=== PATIENT | male | born 1955 | race Caucasian/White ===

== ENCOUNTER → 2016-12-06 | Outpatient (CLI) | payer BC ==
[~2016-12-06] MED LIST: ALT25 PO; ASPI-113 PO; B-COCAP2 PO; CRDCD240 PO; MAGN400T5 PO; OMEG10007 PO
[2016-12-06 16:51] LABS: URINE APPEARANCE CLEAR (CLEAR); URINE BILIRUBIN NEG (NEG); URINE COLOR YELLOW; URINE NITRITE NEG (NEG); URINE PH 5.5 (4.5-7.5); URINE SPECIFIC GRAVITY 1.009 (1.000-1.030); UROBILINOGEN NEG (NEG)
[2016-12-06 17:19] LABS: MANUAL MICROSCOPIC REQUIRED? NO; REVIEW REQ? NO
== END | disposition home or self-care (01) ==
LOC: C.LABBC 13:44
PROVIDERS: ATTEND Internal Medicine
DX: R30.0 Dysuria (principal)

== ENCOUNTER → 2017-02-09 | Outpatient (CLI) | payer BC ==
[2017-02-10 07:19] LABS: ESTIMATED AVERAGE GLUCOSE 108 mg/dl; HA1C FLAG Normal (Normal)
== END | disposition home or self-care (01) ==
LOC: C.LABBC 13:23
PROVIDERS: ATTEND Internal Medicine
DX: R73.9 Hyperglycemia, unspecified (principal)

== ENCOUNTER → 2018-01-24 | Outpatient (CLI) | payer BC | END | disposition home or self-care (01) | LOC: C.LAB 17:27 | PROVIDERS: ATTEND Urology | DX: N40.1 Benign prostatic hyperplasia with lower urinary tract symptoms (principal); N20.0 Calculus of kidney ==

== ENCOUNTER → 2018-02-22 | Outpatient (CLI) | payer BC ==
[2018-02-22 10:56] LABS: HEMOGLOBIN A1C 5.2 % (4.5-5.6)
[2018-02-22 13:21] LABS: ALBUMIN 3.7 gm/dl (3.4-5.0); ALKALINE PHOSPHATASE 69 U/L (45-117); ALT/SGPT 36 U/L (12-78); AST/SGOT 18 U/L (15-37); BLOOD UREA NITROGEN 20 mg/dl (7-18); CALCIUM 8.9 mg/dl (8.5-10.1); CARBON DIOXIDE 27 mmol/L (21-32); CHOLESTEROL 180 mg/dl (0-200); CREATININE 0.92 mg/dl (0.60-1.40); GLUCOSE 99 mg/dl (70-99); LDL CHOLESTEROL CALCULATED 123 mg/dl; POTASSIUM 3.9 mmol/L (3.5-5.1); SODIUM 140 mmol/L (136-145); TOTAL PROTEIN 7.3 gm/dl (6.4-8.2)
== END | disposition home or self-care (01) ==
LOC: C.LAB 09:26
PROVIDERS: ATTEND Physician Assistant Medical
DX: Z00.00 Encounter for general adult medical examination without abnormal findings (principal); I48.91 Unspecified atrial fibrillation; R73.9 Hyperglycemia, unspecified; E78.5 Hyperlipidemia, unspecified; I10 Essential (primary) hypertension

== ENCOUNTER 2019-06-04 08:58 | Inpatient (IN) ==
[2019-06-04] MEDS ORDERED: DOFETILIDE 125 MCG CAPSULE PO ONE ×2 (11:45→23:00)
[2019-06-04 12:10] LABS: BUN Creatinine Ratio 17.5 (10-20); Calcium 8.9 mg/dl (8.5-10.1); Creatinine Clr Calc Pharmacy 101.2 ml/min; Est GFR (African American) 100.2; Est GFR (Non-African American) 86.5
[2019-06-04] MEDS ORDERED: ACETAMINOPHEN 325 MG TAB PO PRN (12:21)
--- NOTE | 2019-06-04 12:30 | History & Physical Report ---
Date of Service June 04, 2019 Assessment & Plan (1) Atypical atrial flutter: (2) PAF (paroxysmal atrial fibrillation): (3) HTN (hypertension): (4) Hyperlipemia: (5) MARGARITO (obstructive sleep apnea): (6) Typical atrial flutter: History of Present Illness Pt having MÉNDEZ and increased fatigue for 2 weeks since being back in atypical atrial flutter until this am when he woke up feeling better and new he was back in SR Primary Care Provider: Didier Hernandez MD Allergies Allergy/AdvReac Type Severity Reaction Status Date / Time Penicillins Allergy Intermediate hives Verified 08/08/18 16:47 Home Medications Home Medications Medication Instructions Recorded Confirmed Type alfuzosin 10 mg PO QAM 08/08/18 08/08/18 History finasteride 5 mg PO QAM 08/08/18 08/08/18 History omega 5-jjg-yrz-fish oil [Fish Oil] 1,000 mg PO QAM 08/08/18 08/08/18 History ramipril 2.5 mg PO QAM 08/08/18 08/08/18 History triamcinolone acetonide 1 applic TOPICAL DIRECTED PRN 08/08/18 08/08/18 History zolpidem 5 mg tablet 5 mg PO HS PRN #90 tab 04/02/19 Rx aspirin 325 mg PO DAILY 06/04/19 06/04/19 History diltiazem HCl 120 mg PO BID 06/04/19 06/04/19 History lorazepam 0.5 mg PO 06/04/19 History magnesium oxide 400 mg PO BID 06/04/19 06/04/19 History Past Med/Surg History Medical History Atrial fibrillation BPH (benign prostatic hyperplasia) Social History Preferred Language: Armenian Communication Ability: Effective 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 Beliefs That Will Affect Care: None Current Living Situation: Spouse Other Information That Helps Us Care for You: No Feels Safe at Home: Yes Safety Concerns: Feels Safe At This Time Smoking Status: Current some day smoker Tobacco Type: cigars ; Do You Dip or Chew Tobacco: No ; Second Hand Exposure: No ; Tobacco Cessation Education Requested by Patient: No Hx Alcohol Use: Yes Alcohol type: beer Hx Substance Use: No Review of Systems Review of Systems: All systems reviewed & are unremarkable except as noted in HPI & below Physical Exam Physical Exam: aaox3, NAD NC/AT, EOMI Supple No JVD Nrl S1/S2, No murmur CTA b/l no w/r/r soft nt/nd no LE edema b/l skin intact no focal deficits Results & Data Vital Signs (Past 12 Hours) Vital Signs Temp Pulse Resp BP Pulse Ox 06/04/19 11:26 36.6 C 64 16 112/75 96 06/04/19 10:45 36.6 C 64 16 112/75 96 Code Status & VTE Plan VTE Prophylaxis Plan VTE Prophylaxis will be ordered: Yes
[2019-06-04] MEDS ORDERED: TRIAMCINOLONE ACET 0.1% CR 15 GM TUBE TOP PRN (12:31)
[2019-06-04] MEDS: OMEGA-3 (PURIFIED FISH OIL) 1 GM CAP PO SCH (20:18)
[2019-06-04] MEDS: MAGNESIUM OXIDE 400 MG TAB PO SCH (20:18)
[2019-06-05] MEDS: OMEGA-3 (PURIFIED FISH OIL) 1 GM CAP PO SCH ×2 (07:33→20:23)
[2019-06-05] MEDS: FINASTERIDE 5 MG TAB PO SCH (07:33)
[2019-06-05] MEDS: MAGNESIUM OXIDE 400 MG TAB PO SCH ×2 (07:33→20:23)
[2019-06-05] MEDS: ENALAPRIL MALEATE 10 MG TAB PO SCH (07:33)
[2019-06-05] MEDS: ASPIRIN 325 MG ECTAB PO SCH (07:34)
--- NOTE | 2019-06-05 08:13 | Cardiology Progress Note ---
Date of Service June 05, 2019 Assessment & Plan (1) Atypical atrial flutter: continue tikosyn 3rd dose this morning will be 250mcg; ECG 2 hours after the dose; continue ASA pt has VIDA clipping and [id number] 1 for HTN (2) PAF (paroxysmal atrial fibrillation): continue tikosyn 3rd dose this morning will be 250mcg; ECG 2 hours after the dose; continue ASA pt has VIDA clipping and [id number] 1 for HTN (of note has a h/o NAVARRO Maze procedure in 2006 with VIDA clipping; failed sotalol and flecainide) Present on Admission?: No (3) HTN (hypertension): continue ramipril Present on Admission?: Yes (4) Hyperlipemia: Present on Admission?: Yes (5) MARGARITO (obstructive sleep apnea): continue home BiPAP/CPAP Present on Admission?: Yes (6) Typical atrial flutter: h/o CTI ablation in 2012 in [place]; continue tikosyn 3rd dose this morning will be 250mcg; ECG 2 hours after the dose; continue ASA pt has VIDA clipping and [id number] 1 for HTN Present on Admission?: No Subjective Pt has no complaints; doing well. Ambulating without problems. Tolerated the 250mcg dose but the 500mcg dose increased his QTc too much. He denies any lightheadedness, dizziness chest pain, SOB> Remaining in SR/AP-VS Review of Systems Review of Systems: All systems reviewed & are unremarkable except as noted in HPI & below Physical Exam Physical Exam: aaox3, NAD NC/AT, EOMI Supple No JVD Nrl S1/S2, No murmur CTA b/l no w/r/r soft nt/nd no LE edema b/l skin intact no focal deficits Results & Data Vital Signs (Past 12 Hours) Vital Signs Temp Pulse Pulse Resp BP Pulse Ox 06/05/19 07:58 60 17 132/83 97 06/05/19 03:05 36.5 C 60 18 137/64 97 06/04/19 23:02 36.9 C 67 19 165/92 H 94 Telemetry: AP-VS, SR, and some PVC EC02/03/2019 after the 2nd dose of tikosyn (250mcg) AP-VS QTc 463ms 02/02/2019 after 1st dose of tikosyn (500mcg) AP-VS QTc 503ms 02/02/2019 before any dose of tikosyn AP-VS QTc 451ms
[2019-06-05] MEDS ORDERED: ALFUZOSIN HCL 10 MG TAB PO SCH (09:00)
[2019-06-05] MEDS ORDERED: DOFETILIDE 125 MCG CAPSULE PO SCH (10:00)
[2019-06-05 19:33] LABS: BUN Creatinine Ratio 16.6 (10-20); Creatinine Clr Calc Pharmacy 79.3 ml/min; Est GFR (African American) 75.1; Est GFR (Non-African American) 64.8; Magnesium 2.2 mg/dl (1.8-2.4); Potassium 3.8 mmol/L (3.5-5.1)
[2019-06-05] MEDS: ALFUZOSIN HCL 10 MG TAB PO SCH (20:23)
[2019-06-05] MEDS ORDERED: DOFETILIDE 125 MCG CAPSULE PO ONE (22:00)
[2019-06-06] MEDS: ZOLPIDEM TARTRATE 5 MG TAB PO PRN ×2 (00:07→23:21)
[2019-06-06] MEDS ORDERED: DOFETILIDE 125 MCG CAPSULE PO STA (09:05)
[2019-06-06] MEDS: FINASTERIDE 5 MG TAB PO SCH (09:26)
[2019-06-06] MEDS: ENALAPRIL MALEATE 10 MG TAB PO SCH (09:26)
[2019-06-06] MEDS: MAGNESIUM OXIDE 400 MG TAB PO SCH ×2 (09:27→20:57)
[2019-06-06] MEDS: OMEGA-3 (PURIFIED FISH OIL) 1 GM CAP PO SCH ×2 (09:27→20:57)
[2019-06-06] MEDS: ASPIRIN 325 MG ECTAB PO SCH (09:27)
--- NOTE | 2019-06-06 15:10 | Cardiology Progress Note ---
Date of Service June 06, 2019 Assessment & Plan (1) Atypical atrial flutter: continue tikosyn 3rd dose this morning will be 250mcg; ECG 2 hours after the dose; continue ASA pt has VIDA clipping and [id number] 1 for HTN (2) PAF (paroxysmal atrial fibrillation): continue tikosyn 3rd dose this morning will be 250mcg; ECG 2 hours after the dose; continue ASA pt has VIDA clipping and [id number] 1 for HTN (of note has a h/o NAVARRO Maze procedure in 2006 with VIDA clipping; failed sotalol and flecainide) (3) HTN (hypertension): continue ramipril (4) Hyperlipemia: (5) MARGARITO (obstructive sleep apnea): continue home BiPAP/CPAP (6) Typical atrial flutter: h/o CTI ablation in 2012 in [place]; continue tikosyn 3rd dose this morning will be 250mcg; ECG 2 hours after the dose; continue ASA pt has VIDA clipping and [id number] 1 for HTN Subjective Pt had brief atrial tachycardia last evening that was tracked by the ventricular pacing which made the pateint very symptomatic. He did not have VT Denies any chest pain, SOB, lightheadedness or dizziness; did have some diarrhea Review of Systems Review of Systems: All systems reviewed & are unremarkable except as noted in HPI & below Physical Exam Physical Exam: aaox3, NAD NC/AT, EOMI Supple No JVD Nrl S1/S2, No murmur CTA b/l no w/r/r soft nt/nd no LE edema b/l skin intact no focal deficits Results & Data Vital Signs (Past 12 Hours) Vital Signs Temp Pulse Pulse Resp BP Pulse Ox 06/06/19 11:43 36.8 C 61 16 132/84 96 06/06/19 08:00 60 06/06/19 07:00 36.8 C 60 16 93/76 L 96 06/06/19 03:19 36.4 C L 56 L 19 154/94 H 97 Pacemaker interroated today performed by myself and interpreted by myself reprogrammed today: Max tracking rate changed from 130ms to 110ms Max sensing rate changed from 130ms to 120ms Dynamic AV delay turned off and set at 240ms PVarb changed from 250 to 350 ECG: Today after the 5th dose of Tikosyn: AP-VS QTc 470ms 02/04/2019: after the 4th dose AP-VS QTc 453ms 02/04/2019: after the 3rd dose: APVS QTC 440ms 02/03/2019 after the 2nd dose of tikosyn (250mcg) AP-VS QTc 463ms 02/02/2019 after 1st dose of tikosyn (500mcg) AP-VS QTc 503ms 02/02/2019 before any dose of tikosyn AP-VS QTc 451ms
[2019-06-06] MEDS: ALFUZOSIN HCL 10 MG TAB PO SCH (20:56)
[2019-06-06] MEDS: DOFETILIDE 125 MCG CAPSULE PO SCH (21:00)
--- NOTE | 2019-06-07 07:00 | Discharge Summary ---
Date of Service June 07, 2019 Admission HPI Per Admitting Provider Pt admitted for elective admission to start Tikosyn monitoring due to atypical atrial flutter and AF. Admission Exam Per Admitting Provider aaox3, NAD NC/AT, EOMI Supple No JVD Nrl S1/S2, No murmur CTA b/l no w/r/r soft nt/nd no LE edema b/l skin intact no focal deficits Principal Diagnosis pAF and atypical atrial flutter s/p tikosyn intiation Discharge Exam aaox3, NAD NC/AT, EOMI Supple No JVD Nrl S1/S2, No murmur CTA b/l no w/r/r soft nt/nd no LE edema b/l skin intact no focal deficits Discharge Data Allergies Allergy/AdvReac Type Severity Reaction Status Date / Time Penicillins Allergy Intermediate hives Verified 08/08/18 16:47 Hospital Course (1) Atypical atrial flutter: continue tikosyn 250mccg BID; continue ASA pt has VIDA clipping and [id number] 1 for HTN Pt admitted for elective admission to start Tikosyn monitoring due to atypical atrial flutter and AF. He did not tolerate the one 500mcg dose so the subsequent doses were decreased to 250mcg BID. After the fourth dose he had brief Atrial Tachycardia that his pacemaker tracked this rate making him symptomatic due to VVI pacing-this lasted about a minute. His pacemaker was reprogrammed to hopefully correct this. He was ultimately discharged after his 7th dose of tikosyn-the QTc was slightly prolonged but accessible. (2) PAF (paroxysmal atrial fibrillation): continue tikosyn 250mcg 2x a day; continue ASA pt has VIDA clipping and [id number] 1 for HTN (of note has a h/o NAVARRO Maze procedure in 2006 with VIDA clipping; failed sotalol and flecainide) (3) HTN (hypertension): continue ramipril (4) Hyperlipemia: (5) MARGARITO (obstructive sleep apnea): continue home BiPAP/CPAP (6) Typical atrial flutter: h/o CTI ablation in 2012 in [place]; continue tikosyn 250mcg bid; continue ASA pt has VIDA clipping and [id number] 1 for HTN Total Time Total Time Spent Total Time Spent (In Minutes): 30 Total Time Includes: Examination of the Patient, Discharge Planning, Medication Reconciliation and Other Discharge Plan Discharge Items Patient Disposition: Home - Self-Care Reason For Visit: ATRIAL FIBRILLATION Discharge Diagnosis: pAF s/p tikosyn initiation Condition: Good Discharge Goals: Improve function Activity: Resume your previous activity Bathing: No limitations Driving/Machine Use: No limitations 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 Burnett as scheduled Prescriptions: New dofetilide [Tikosyn] 125 mcg Capsule 250 mcg PO BID Qty: 60 RF: 0 Continued zolpidem 5 mg tablet 5 mg PO HS PRN (Reason: Sleep) Qty: 90 RF: 1 triamcinolone acetonide 0.1 % Cream 1 applic TOPICAL DIRECTED PRN (Reason: Skin Irritation) RF: 0 ramipril 2.5 mg Capsule 2.5 mg PO QAM RF: 0 finasteride 5 mg Tablet 5 mg PO QAM RF: 0 alfuzosin 10 mg Tablet Extended Release 24 Hr 10 mg PO QAM RF: 0 omega 8-jss-dhn-fish oil [Fish Oil] 1,000 mg (120 mg-180 mg) Capsule 1,000 mg PO BID RF: 0 aspirin 325 mg Tablet 325 mg PO DAILY RF: 0 lorazepam 0.5 mg tablet 0.5 mg PO RF: 0 magnesium oxide 400 mg magnesium Capsule 400 mg PO BID RF: 0 Discontinued diltiazem HCl 120 mg tablet 120 mg PO BID RF: 0 Stand-Alone Forms: [facility] Discharge Orders: Discharge Order (Routine); Ordered 06/07/19 Ordered By: David Cruz Admission Data Admit Date/Time: 06/04/19 10:22 Attending Provider: Renetta Burnett Admit Provider: Renetta Burnett Primary Care Provider: Didier Hernandez Service: Telemetry Other Interventions: Discharge Summary Assessment (RN) Last Done: 06/07/19 09:29 Pending Studies at Discharge: No DC Date/Time DO NOT enter until pt leaves facility: 06/07/19 10:29
[2019-06-07] MEDS: MAGNESIUM OXIDE 400 MG TAB PO SCH (08:05)
[2019-06-07] MEDS: DOFETILIDE 125 MCG CAPSULE PO SCH (08:05)
[2019-06-07] MEDS: OMEGA-3 (PURIFIED FISH OIL) 1 GM CAP PO SCH (08:06)
[2019-06-07] MEDS: ASPIRIN 325 MG ECTAB PO SCH (08:06)
[2019-06-07] MEDS: FINASTERIDE 5 MG TAB PO SCH (08:06)
[2019-06-07] MEDS: ENALAPRIL MALEATE 10 MG TAB PO SCH (08:06)
--- NOTE | 2019-06-07 09:27 | Cardiology Progress Note ---
Date of Service June 07, 2019 Assessment & Plan (1) Atypical atrial flutter: continue tikosyn 250mccg BID; continue ASA pt has VIDA clipping and [id number] 1 for HTN Pt admitted for elective admission to start Tikosyn monitoring due to atypical atrial flutter and AF. He did not tolerate the one 500mcg dose so the subsequent doses were decreased to 250mcg BID. After the fourth dose he had brief Atrial Tachycardia that his pacemaker tracked this rate making him symptomatic due to VVI pacing-this lasted about a minute. His pacemaker was reprogrammed to hopefully correct this. He was ultimately discharged after his 7th dose of tikosyn-the QTc was 442 (2) PAF (paroxysmal atrial fibrillation): continue tikosyn 250mcg 2x a day; continue ASA pt has VIDA clipping and [id number] 1 for HTN (of note has a h/o NAVARRO Maze procedure in 2006 with VIDA clipping; failed sotalol and flecainide) (3) HTN (hypertension): continue ramipril (4) Hyperlipemia: (5) MARGARITO (obstructive sleep apnea): continue home BiPAP/CPAP (6) Typical atrial flutter: h/o CTI ablation in 2012 in [place]; continue tikosyn 250mcg bid; continue ASA pt has VIDA clipping and [id number] 1 for HTN Subjective Patient seen and examined, chart, medications, telemetry reviewed Feels well. No arrhythmias overnight. Ambulatory in room and hallway. Physical Exam Constitutional: WD/WN, vitals as above ENMT: external ear and nose normal, oropharynx normal Respiratory: normal respiratory effort, lungs clear to auscultation Cardiovascular: Rate/Rhythm: regular rate and regular rhythm Heart Sounds: normal S1 and normal S2 Extremities: no edema Gastrointestinal (Abdomen): normal bowel sounds, soft, nontender, no hepatosplenomegaly Results & Data Vital Signs (Past 12 Hours) Vital Signs Temp Pulse Pulse Resp BP Pulse Ox 06/07/19 08:00 60 06/07/19 06:53 36.5 C 60 18 115/70 96 06/07/19 03:37 36.4 C L 60 18 132/78 97 06/07/19 01:10 60 06/06/19 22:59 37.0 C 60 18 136/67 96 ECG Additional Comments: EKG 06/07/2019: AV sequential pacing QT corrected 442
== END 2019-06-07 10:29 | disposition home or self-care (01) | DRG 310 ==
LOC: 2E 10:22